=== PATIENT | male | born 1965 | race Two or more races ===

== ENCOUNTER 2021-01-30 05:55 | Day surgery (SDC) | payer OTHER | END 2021-01-30 09:40 | disposition home or self-care (01) | LOC: AMB-ENDOS 05:55 | PROVIDERS: ATTEND Surgery | DX: K31.7 Polyp of stomach and duodenum (principal); K29.50 Unspecified chronic gastritis without bleeding; K63.5 Polyp of colon; Z12.11 Encounter for screening for malignant neoplasm of colon; Z20.822 Contact with and (suspected) exposure to COVID-19; K64.8 Other hemorrhoids; K44.9 Diaphragmatic hernia without obstruction or gangrene ==

== ENCOUNTER 2021-06-27 07:44 | Outpatient (CLI) | payer OTHER | END 2021-06-27 07:54 | disposition home or self-care (01) | LOC: RAD 07:44 | DX: R07.89 Other chest pain (principal) ==

== ENCOUNTER 2021-11-20 13:06 | Outpatient (CLI) | payer OTHER | END 2021-11-20 13:13 | disposition home or self-care (01) | LOC: SONOGRAMA 13:06 | DX: N52.8 Other male erectile dysfunction (principal); N40.1 Benign prostatic hyperplasia with lower urinary tract symptoms ==

== ENCOUNTER 2022-12-02 10:22 | Outpatient (CLI) | payer OTHER | END 2022-12-02 10:36 | disposition home or self-care (01) | LOC: RAD 10:22 | PROVIDERS: ATTEND Specialist | DX: J44.9 Chronic obstructive pulmonary disease, unspecified (principal); J45.40 Moderate persistent asthma, uncomplicated; Z72.0 Tobacco use; J31.0 Chronic rhinitis; R06.83 Snoring ==

== ENCOUNTER 2023-07-11 10:38 | Outpatient (CLI) | payer OTHER | END 2023-07-11 10:50 | disposition home or self-care (01) | LOC: SONOGRAMA 10:38 | DX: N40.1 Benign prostatic hyperplasia with lower urinary tract symptoms (principal); N41.9 Inflammatory disease of prostate, unspecified; N52.9 Male erectile dysfunction, unspecified ==

== ENCOUNTER 2023-10-13 08:22 | Outpatient (CLI) | payer OTHER | END 2023-10-13 08:34 | disposition home or self-care (01) | LOC: TOM 08:22 | PROVIDERS: ATTEND Specialist | DX: J18.1 Lobar pneumonia, unspecified organism (principal); R91.8 Other nonspecific abnormal finding of lung field; Z72.0 Tobacco use ==

== ENCOUNTER 2025-03-01 08:36 | Outpatient (CLI) | payer OTHER | END 2025-03-01 08:40 | disposition home or self-care (01) | LOC: TOM 08:36 | PROVIDERS: ATTEND Surgery | DX: R10.32 Left lower quadrant pain (principal) ==